=== PATIENT | female | born 1975 | race Two or more races ===

== ENCOUNTER 2020-09-22 13:32 | Inpatient (IN) | payer SELFPAY ==
[~2020-09-22] VITALS: Ht 160 cm; Wt 60.1 kg
[2020-09-22] VITALS (10 sets, daily range): BP systolic 99–132; BP diastolic 54–73
--- NOTE | 2020-09-22 13:50 | NUR ---
EKG COMPLETED IN TRIAGE
--- NOTE | 2020-09-22 14:06 | NUR ---
program admin: attempted to charisse pt from lobby to room, no answer in lobby
--- NOTE | 2020-09-22 14:12 | NUR ---
hims coder: pt from lobby to room [id number]
[2020-09-22] MEDS ORDERED: SODIUM CHLORIDE FLUSH 10ML SYR IVF ONE (15:00)
[2020-09-22 15:21] LABS: BASOPHILS % (AUTO) 1 % (0-1); EOSINOPHILS % (AUTO) 1 % (1-7); LYMPHOCYTES % (AUTO) 26 % (22-44); MEAN CORPUSCULAR HEMOGLOBIN 16.3 pg (27.0-34.8); MEAN PLATELET VOLUME 8.7 fL (7.4-10.4); MONOCYTES % (AUTO) 7 % (2-9); NEUTROPHILS % (AUTO) 65 % (42-75); PLATELET COUNT 395 x10^3/uL (130-400); RED BLOOD COUNT 3.43 x10^6/uL (3.82-5.3)
[2020-09-22 15:32] LABS: ALANINE AMINOTRANSFERASE 20 U/L (12-78); ALBUMIN 3.8 g/dL (3.4-5.0); ANION GAP 6 mmol/L (5-15); CALCIUM 8.7 mg/dL (8.5-10.1); CHLORIDE 113 mmol/L (98-107)
[2020-09-22 15:35] LABS: % IRON SATURATION 1 % (20-55); ALKALINE PHOSPHATASE 95 U/L (45-117); BILIRUBIN,TOTAL 0.2 mg/dL (0.2-1.0); CREATININE 0.63 mg/dL (0.55-1.02); IRON LEVEL 7 mcg/dL (50-170); TOTAL IRON BINDING CAPACITY 491 mcg/dL (250-450); TOTAL PROTEIN 7.5 g/dL (6.4-8.2)
[2020-09-22 16:00] LABS: MD MORPH REVIEW ONLY; MEAN CORPUSCULAR HGB CONC 28.4 g/dL (32.4-35.8)
[2020-09-22 16:01] LABS: <PLATELET ESTIMATE> ADEQUATE; LARGE PLATELETS 1+
[2020-09-22 16:02] LABS: ANISOCYTOSIS 1+; HYPOCHROMIA 3+; MICROCYTOSIS 2+
[2020-09-22 16:03] LABS: OVALOCYTES 1+
[2020-09-22] MEDS ORDERED: SODIUM CHLORIDE FLUSH 10ML SYR IVF PRN (17:30)
--- NOTE | 2020-09-22 17:35 | NUR ---
SON AT BEDSIDE. VSS. BLOOD INFUSING. AT BEDSIDE
--- NOTE | 2020-09-22 18:11 | NUR ---
BLOOD STILL INFUSING UPON TRANSFER TO FLOOR
[2020-09-22] MEDS ORDERED: POTASSIUM CHLORIDE 10% 40 MEQ/30 ML UDC PO ONE (18:30)
[2020-09-22 18:39] LABS: INTERNATIONAL NORMALIZED RATIO 1.02 (0.93-1.1); PROTHROMBIN TIME 10.9 Seconds (9.6-11.5)
[2020-09-22] MEDS ORDERED: IBUP200C75 PO (18:48)
[2020-09-22 20:07] LABS: MICROSCOPIC AUTO
[2020-09-22 21:07] LABS: OCCULT BLOOD NEGATIVE (NEGATIVE)
[2020-09-23 00:09] VITALS: BP 115/70
[2020-09-23 00:16] VITALS: BP 115/70
[2020-09-23 01:14] VITALS: BP 115/73
[2020-09-23 05:07] LABS: BASOPHILS % (AUTO) 1 % (0-1); EOSINOPHILS % (AUTO) 1 % (1-7); LYMPHOCYTES % (AUTO) 23 % (22-44); MEAN CORPUSCULAR HEMOGLOBIN 19.3 pg (27.0-34.8); MEAN CORPUSCULAR HGB CONC 30.8 g/dL (32.4-35.8); MEAN PLATELET VOLUME 8.7 fL (7.4-10.4); MONOCYTES % (AUTO) 9 % (2-9); NEUTROPHILS % (AUTO) 66 % (42-75); PLATELET COUNT 329 x10^3/uL (130-400); RED BLOOD COUNT 4.07 x10^6/uL (3.82-5.3); RED CELL DISTRIBUTION WIDTH 26.3 % (9.6-15.2)
[2020-09-23 05:12] LABS: CHLORIDE 114 mmol/L (98-107)
[2020-09-23 05:18] LABS: ALANINE AMINOTRANSFERASE 47 U/L (12-78); ALBUMIN 3.4 g/dL (3.4-5.0); ALKALINE PHOSPHATASE 103 U/L (45-117); ANION GAP 3 mmol/L (5-15); BILIRUBIN,TOTAL 1.4 mg/dL (0.2-1.0); CALCIUM 8.4 mg/dL (8.5-10.1); CREATININE 0.53 mg/dL (0.55-1.02); TOTAL PROTEIN 6.6 g/dL (6.4-8.2)
[2020-09-23 05:58] LABS: MD SCAN
[2020-09-23 06:43] VITALS: BP 110/69
[2020-09-23] MEDS ORDERED: CYANOCOBALAMIN 1,000 MCG/ML, 1ML IM ONE (08:00)
[2020-09-23] MEDS ORDERED: IRON DEXTRAN COMPLEX 25 MG in SODIUM CHLORIDE 0.9% 50 ML IV ONE (08:00)
[2020-09-23] MEDS: ASCORBIC ACID 500 MG TABLET PO SCH ×2 (08:24→16:49)
[2020-09-23] MEDS: ZINC SULFATE 220 MG CAPSULE PO SCH (08:24)
[2020-09-23] MEDS: CHOLECALCIFEROL 5,000u TAB PO SCH (08:25)
[2020-09-23] MEDS: CALCIUM CARBONATE 500 MG TAB.CHEW PO SCH ×2 (08:25→19:48)
[2020-09-23] MEDS: MULTIVITS,STRESS FORMULA 1 TABLET PO SCH (08:25)
[2020-09-23] MEDS ORDERED: EPINEPHRINE 1 MG/ML, 1ML SQ PRN (08:30)
[2020-09-23] MEDS ORDERED: IRON DEXTRAN COMPLEX IV ONE (09:30)
[2020-09-23] MEDS ORDERED: SODIUM CHLORIDE 0.9% IV ONE (09:30)
[2020-09-23 14:07] VITALS: BP 120/71
[2020-09-23 19:32] VITALS: BP 117/73
[2020-09-24 00:26] VITALS: BP 105/64
[2020-09-24 05:13] LABS: BASOPHILS % (AUTO) 1 % (0-1); EOSINOPHILS % (AUTO) 2 % (1-7); LYMPHOCYTES % (AUTO) 24 % (22-44); MEAN CORPUSCULAR HGB CONC 31.1 g/dL (32.4-35.8); MEAN PLATELET VOLUME 8.8 fL (7.4-10.4); MONOCYTES % (AUTO) 8 % (2-9); NEUTROPHILS % (AUTO) 65 % (42-75); PLATELET COUNT 353 x10^3/uL (130-400); RED BLOOD COUNT 4.13 x10^6/uL (3.82-5.3); RED CELL DISTRIBUTION WIDTH 26.6 % (9.6-15.2)
[2020-09-24 05:25] LABS: MEAN CORPUSCULAR HEMOGLOBIN 19.7 pg (27.0-34.8)
[2020-09-24 05:47] LABS: MD SCAN
[2020-09-24] MEDS: ASCORBIC ACID 500 MG TABLET PO SCH ×2 (07:25→15:28)
[2020-09-24] MEDS: CALCIUM CARBONATE 500 MG TAB.CHEW PO SCH (07:25)
[2020-09-24] MEDS: CHOLECALCIFEROL 5,000u TAB PO SCH (07:25)
[2020-09-24] MEDS: MULTIVITS,STRESS FORMULA 1 TABLET PO SCH (07:25)
[2020-09-24] MEDS: ZINC SULFATE 220 MG CAPSULE PO SCH (07:25)
[2020-09-24 07:28] VITALS: BP 116/73
[2020-09-24 12:51] VITALS: BP 120/67
[2020-09-24] MEDS ORDERED: ASCO500T9 PO (12:51)
[2020-09-24] MEDS ORDERED: ZINC220C8 PO (12:51)
[2020-09-24] MEDS ORDERED: CHOL500045 PO (12:51)
== END 2020-09-24 15:57 | disposition home or self-care (01) | DRG 812 ==
LOC: ED 13:57 → OBSVTOIN 17:10 → INTOOBSV 17:10 → EDIP 17:10 → 4NW 18:29 → DCLOUNGE 09-24 15:50
PROVIDERS: ADMIT Internal Medicine; ATTEND Family Medicine
PROC: 30233N1 Transfusion of Nonautologous Red Blood Cells into Peripheral Vein, Percutaneous Approach (ICD-10-PCS; principal; 2020-09-22)
DX: D50.9 Iron deficiency anemia, unspecified (principal); E63.9 Nutritional deficiency, unspecified; E87.6 Hypokalemia; N92.6 Irregular menstruation, unspecified; N94.6 Dysmenorrhea, unspecified; R42 Dizziness and giddiness; R53.81 Other malaise; R53.83 Other fatigue; R55 Syncope and collapse; R74.01 Elevation of levels of liver transaminase levels; Z78.0 Asymptomatic menopausal state
CPT/HCPCS: 36415; 36430; 80053; 81001; 82272; 82607; 82728; 83010; 83036; 83540; 83550; 83615; 85025; 85610; 86850; 86900; 86923; 93005; 99285; G0378; J1750; J3420; J7050; P9016